=== PATIENT | female | born 1980 | race Caucasian/White ===

== ENCOUNTER 2018-12-15 18:08 | Emergency (ER) | payer BC, OTHER ==
[~2018-12-15] VITALS: Ht 162.6 cm; Wt 81.4 kg
[~2018-12-15 18:08] MED LIST: CIPR500T4 PO; FER325 PO; LANT3I SC; MTF1000T PO; ONDA4TAB8 PO; TRAM50TA2 PO
[2018-12-15 18:13] VITALS: RESP 17; Ht 162.6 cm; Wt 81.4 kg
--- NOTE | 2018-12-15 18:19 | ERD ---
ER Documentation Chief Complaint Chief Complaint ELEVATED BLOOD SUGAR, DIZZINESS, PT OUT OF MEDS HPI 38-year-old female, with history of type 2 diabetes, presents the emergency department, complaining of dizziness and general malaise after she ran out of medications approximately 5 days ago. The patient current regimen includes La ntus 55 units nightly and metformin 1000 twice daily. Otherwise, the patient denies chest pain, no shortness of breath, no abdominal pain, no urinary symptoms. ROS All systems reviewed and are negative except as per history of present illness. Medications Home Meds Active Scripts Ferrous Sulfate* (Ferrous Sulfate*) 325 Mg Tabec, 325 MG PO BID, #60 TAB Prov:DAVY WORRELL MD 12/15/18 Metformin* (Glucophage*) 1,000 Mg Tablet, 1000 MG PO BID, #60 TAB Prov:DAVY WORRELL MD 12/15/18 Insulin Glargine* (Lantus*) 100 Unit/Ml Soln, 55 UNIT SC QHS for 30 Days, #1 VIAL Prov:DAVY WORRELL MD 12/15/18 Tramadol HCl (Tramadol HCl) 50 Mg Tablet, 50 MG PO Q4 PRN for PAIN, #20 TAB Prov:JOE WANG PA-C 12/09/15 Ondansetron Hcl* (Zofran*) 4 Mg Tablet, 4 MG PO Q6H for NAUSEA AND/OR VOMITING, #30 TAB Prov:JOE WANG PA-C 12/09/15 Ciprofloxacin Hcl* (Ciprofloxacin Hcl*) 500 Mg Tablet, 500 MG PO BID for 10 Days, TAB Prov:JOE WANG PA-C 12/09/15 Allergies Allergies: Coded Allergies: No Known Allergy (Unverified , 12/09/15) PMhx/Soc History of Surgery: No Anesthesia Reaction: No Hx Neurological Disorder: No Hx Respiratory Disorders: No Hx Cardiac Disorders: No Hx Psychiatric Problems: No Hx Miscellaneous Medical Probl: Yes (DM, HIGH CHOLESTEROL, UTI) Hx Alcohol Use: No Hx Substance Use: No Hx Tobacco Use: No FmHx Family History: diabetes; No coronary disease Physical Exam Vitals Vital Signs Date Temp Pulse Resp B/P (MAP) Pulse Ox O2 O2 Flow FiO2 Time Delivery Rate 12/15/18 98.1 95 17 153/87 99 18:13 (109) Physical Exam Const: No acute distress Head: Atraumatic Eyes: Normal Conjunctiva ENT: Normal External Ears, Nose and Mouth. Neck: Full range of motion. No meningismus. Resp: Clear to auscultation bilaterally Cardio: Regular rate and rhythm, no murmurs Abd: Soft, non tender, non distended. Normal bowel sounds Skin: No petechiae or rashes Back: No midline or flank tenderness Ext: No cyanosis, or edema Neur: Awake and alert Psych: Normal Mood and Affect Result Diagram: 12/15/18 1832 12/15/18 183 Results 24 hrs Laboratory Tests Test 12/15/18 18:12 12/15/18 18:32 12/15/18 18:33 12/15/18 20:03 Bedside Glucose 348 mg/dL 265 mg/dL White Blood Count 9.0 10^3/ul Red Blood Count 5.12 10^6/ul Hemoglobin 10.9 g/dl Hematocrit 37.0 % Mean Corpuscular 72.3 fl Volume Mean Corpuscular 21.3 pg Hemoglobin Mean Corpuscular 29.5 g/dl Hemoglobin Concen t Red Cell 15.6 % Distribution Width Platelet Count 472 10^3/UL Mean Platelet 9.8 fl Volume Immature 0.400 % Granulocytes % Neutrophils % 53.0 % Lymphocytes % 36.3 % Monocytes % 7.0 % Eosinophils % 2.6 % Basophils % 0.7 % Nucleated Red 0.0 /100WBC Blood Cells % Immature 0.040 10^3/ul Granulocytes # Neutrophils # 4.8 10^3/ul Lymphocytes # 3.3 10^3/ul Monocytes # 0.6 10^3/ul Eosinophils # 0.2 10^3/ul Basophils # 0.1 10^3/ul Nucleated Red 0.0 10^3/ul Blood Cells # Sodium Level 134 mmol/L Potassium Level 3.9 mmol/L Chloride Level 99 mmol/L Carbon Dioxide 23 mmol/L Level Anion Gap 12 Blood Urea 13 mg/dl Nitrogen Creatinine 0.42 mg/dl Est Glomerular > 60 mL/min Filtrat Rate mL/min Glucose Level 346 mg/dl Hemoglobin A1c 12.1 % Calcium Level 9.5 mg/dl Total Bilirubin 0.4 mg/dl Direct Bilirubin 0.00 mg/dl Indirect 0.4 mg/dl Bilirubin Aspartate Amino 32 IU/L Transf (AST/SGOT) Alanine 43 IU/L Aminotransferase (ALT/SGPT) Alkaline 134 IU/L Phosphatase Total Protein 8.4 g/dl Albumin 4.5 g/dl Globulin 3.90 g/dl Albumin/Globulin 1.15 Ratio Urine Color STRAW Urine Clarity CLEAR Urine pH 5.0 Urine Specific 1.038 [place] Urine Ketones 1+ mg/dL Urine Nitrite NEGATIVE mg/dL Urine Bilirubin NEGATIVE mg/dL Urine NEGATIVE mg/dL Urobilinogen Urine Leukocyte NEGATIVE Gio/ul Esterase Urine Hemoglobin NEGATIVE mg/dL Urine Glucose 3+ mg/dL Urine Total NEGATIVE mg/dl Protein Current Medications Medications Dose Sig/[place] Start Time Status Last (Trade) Ordered Route PRN Stop Time Admin Dose Reason Admin Sodium 1,000 ml @ Q1H STAT 12/15/18 DC 12/15/18 Chloride 1,000 mls/hr IV 18:24 18:44 12/15/18 19:23 Insulin 8 unit ONCE STAT 12/15/18 Cancel Human IV 18:24 Regular 12/15/18 18:25 (Novolin-R) 650 mg ONCE ONCE 12/15/18 DC 12/15/18 Acetaminophen PO 18:30 18:51 (Tylenol 12/15/18 18:32 Tab) Insulin 8 unit ONCE STAT 12/15/18 DC 12/15/18 Human IV 18:57 19:01 Regular 12/15/18 18:58 (Humulin R) Procedures/MDM Vital signs stable, patient hemodynamically stable. Differential diagnosis considered include uncontrolled diabetes, infection, poor compliance with insulin and diet. Low suspicion for ketoacidosis or hyperosmolar status. During the ED course the patient remained stable, no new complaints. The patient received treatment with IV fluids and insulin presenting overall improvement of the symptoms. Results and clinical impression discussed with the patient who agrees with management. The patient is stable to be treated outpatient and will be discharged home with a Rx for ferrous sulfate, metformin and Lantus, some side effects of prescribed medications (headache, rash, nausea, vomiting, diarrhea, drowsiness, habituation, bleeding, hypertension, interactions with other medications) were reviewed. Follow up with the primary care provider in the next 48h has been recommended. If symptoms persist, worsen or new symptoms develop, then patient should return to the ED immediately. Instructions explained and given directly by me to the patient with acknowledgment and demonstrated understanding. Disclaimer: Inadvertent spelling and grammatical errors are likely due to EHR/dictation software use and do not reflect on the overall quality of patient care. Also, please note that the electronic time recorded on this note does not necessarily reflect the actual time of the patient encounter. Departure Diagnosis: Primary Impression: Hyperglycemia Additional Impression: Uncontrolled diabetes mellitus Condition: Stable Additional Instructions: Thank you very much for allowing us to participate in your care. Your health and safety is our top priority at [facility]. The evaluation in the emergency department has been done to rule out an acute emergency. Chronic, [id number] conditions may have not been evaluated; therefore, you need to follow up with a primary care provider in the next 48h. If symptoms persist, worsen or new symptoms develop, then patient should return to the ED immediately. Call your primary care doctor TOMORROW for an appointment during the next 2-4 days and bring all the information provided. Have prescriptions filled and follow precisely the directions on the label. If the symptoms get worse and your provider is unavailable, return to the Emergency Department immediately. DAVY WORRELL MD Dec 15, 2018 18:19
[2018-12-15] MEDS ORDERED: SOD CHLORIDE 0.9% 1,000 ML IV STA (18:24)
[2018-12-15] MEDS ORDERED: INSULIN REGULAR 10 ML INJ IV STA (18:24)
[2018-12-15] MEDS ORDERED: ACETAMINOPHEN 325 MG TAB PO ONE (18:30)
[2018-12-15] MEDS ORDERED: INSULIN REGULAR, HUMAN 100 UNIT/1 ML 3ML VIAL IV STA (18:57)
[2018-12-15 20:19] VITALS: BP 117/68; PULSE 84
== END 2018-12-15 20:31 | disposition home or self-care (01) ==
LOC: E/R 18:08 → FTE 20:31
DX: E11.65 Type 2 diabetes mellitus with hyperglycemia (principal); Z79.4 Long term (current) use of insulin
CPT/HCPCS: 36415; 80053; 81003; 82962; 83036; 85025; 96374; 99284; J7030; J1815